=== PATIENT | female | born 1990 | race African-American/Black ===

== ENCOUNTER 2018-07-05 23:41 | Emergency (ER) | payer OTHER ==
[~2018-07-05] VITALS: Ht 162.6 cm; Wt 79.4 kg
[2018-07-06] MEDS ORDERED: Acetaminophen 500mg (ES) tab ORAL ONE (01:15)
[2018-07-06 02:03] LABS: APPEARANCE,URINE VERY CLOUDY; BILIRUBIN, URINE NEGATIVE (NEGATIVE); GLUCOSE, URINE (UA) NEGATIVE (NEGATIVE); KETONES,URINE 2+ (NEGATIVE); LEUKOCYTE ESTERASE ,URINE 3+ (NEGATIVE); NITRITE,URINE NEGATIVE (NEGATIVE); PH,URINE 6 (4.5-8.0); PROTEIN,URINE 3+ (NEGATIVE); UROBILINOGEN,URINE 1 MG/DL (0.0-1.0)
[2018-07-06 02:04] LABS: COLOR,URINE YELLOW
[2018-07-06] MEDS ORDERED: Cephalexin 500mg cap ORAL ONE (02:45)
[2018-07-06 02:57] VITALS: BP 115/69
--- NOTE | 2018-07-06 03:00 | NUR ---
ED Nurse Note: Patient resting, easily arousable. Patient tolerated medication well.
[2018-07-06] MEDS ORDERED: IBUPROFEN600 MG ORAL (04:45)
[2018-07-06] MEDS ORDERED: ROBAXIN-750750 MG PO (04:45)
[2018-07-06] MEDS ORDERED: CEPHALEXIN500 MG ORAL (04:45)
--- NOTE | 2018-07-06 04:56 | Emergency Room Report ---
History of Present Illness General Chief Complaint: Lower Back Pain or Injury Source: Patient Present Illness HPI Patient is a 27-year-old female who reports of increased facial pain as well as neck and back pain after a fall. Patient reports having a fall last night. She does not recall events after the fall. She reports of increased low back pain after falling. She denies any numbness or weakness. She reports having increased headache. Injury occurred approximately 12 hours prior to arrival. She was noted to have increased facial pain. Patient additionally reports having some mild neck discomfort. Allergies: Coded Allergies: No Known Allergies (Unverified , 07/06/18) Patient History Past Medical History: see triage record Last Menstrual Period: 07/03/18 Reviewed Nursing Documentation: PMH: Agreed; PSxH: Agreed Nursing Documentation-PMH Past Medical History: No Stated History Review of Systems All Other Systems: negative except mentioned in HPI Physical Exam Vital Signs Date Time Temp Pulse Resp B/P (MAP) Pulse Ox O2 Delivery O2 Flow Rate FiO2 07/05/18 23:57 98.1 61 18 100 Room Air 07/06/18 02:57 115/69 Sp02 EP Interpretation: reviewed, normal General Appearance: normal inspection, alert, no apparent distress, GCS 15 Head: normocephalic, other - Forehead swelling Eyes: normal eye exam, PERRL, EOMI, lids + conjunctiva normal, no hyphema, no racoon eyes ENT: TMs + canals normal, oropharynx normal, no dudley signs, other - nasal abrasion Neck: trach midline, no bony tend Respiratory: effort normal, no retractions, clear to auscultation, speaking in full sentences Cardiovascular: regular rate, rhythm, no JVD Cardiovascular #2: 2+ radial (R), 2+ radial (L), 2+ dorsalis pedis (R), 2+ dorsalis pedis (L) Gastrointestinal: normal inspection, non-tender, non-distended, normal bowel sounds Genitourinary: normal inspection Musculoskeletal: non-tender, other - Tenderness to low back. Skin: no lacerations, normal palpation, other - Facial abrasions to the forehead ,area near the left nares Lymphatic: normal inspection Neurologic: normal inspection, CN II-XII intact, oriented x3, sensory intact, motor strength/tone normal, normal speech Psychiatric: normal inspection, memory normal, mood normal, no suicidal/ homicidal ideation Medical Decision Making Diagnostic Impression: Primary Impression: Facial contusion Additional Impressions: Lumbar disc disease Cervical strain, acute Urinary tract infection ER Course Patient presented after reported fall. Differential diagnosis include was not limited to fracture, spinal cord injury, intracranial hemorrhage among others. Because of complexity of patient's case laboratory testing and imaging studies were ordered. Patient was noted to be not . CT imaging of the head by radiology showed no evidence of acute intracranial pathology. Patient was noted to have some significant abrasions to her face. Her left nare appeared to have some superficial trauma without any active bleeding. CT lumbar spine read by radiology showed lumbar disc bulges. CT of cervical spine showed normal bony alignment without evident fracture patient urinalysis showed some evidence of urinary infection and so patient will be given prescription for Keflex. Patient was noted to be ambulatory without assistance. Patient was to follow-up for recheck with her primary care physician. She is given prescriptions for medications for pain. Patient was advised to return if she had any concerns or worsening condition. Labs Test 07/06/18 01:24 Urine Color Yellow Urine Appearance Very cloudy Urine pH 6 (4.5-8.0) Urine Specific [place] 1.015 (1.005-1.035) Urine Protein 3+ (NEGATIVE) Urine Glucose (UA) Negative (NEGATIVE) Urine Ketones 2+ (NEGATIVE) Urine Blood 5+ (NEGATIVE) Urine Nitrite Negative (NEGATIVE) Urine Bilirubin Negative (NEGATIVE) Urine Urobilinogen 1 MG/DL (0.0-1.0) Urine Leukocyte Esterase 3+ (NEGATIVE) Urine RBC 20-30 /HPF (0 - 2) Urine WBC 20-30 /HPF (0 - 2) Urine Squamous Epithelial Cells Many /LPF (NONE/OCC) Urine Bacteria Many /HPF (NONE) Urine Mucus Few /LPF (NONE/OCC) Urine HCG, Qualitative Negative (NEGATIVE) Last Vital Signs Date Time Temp Pulse Resp B/P (MAP) Pulse Ox O2 Delivery O2 Flow Rate FiO2 07/06/18 02:57 98.1 83 18 115/69 100 Room Air Status: improved Disposition: HOME, SELF-CARE Condition: Stable Scripts Methocarbamol* (ROBAXIN-750*) 750 Mg Tablet 750 MG PO TID, #21 TAB 0 Refills Prov: Darvin Bales MD 07/06/18 Ibuprofen* (MOTRIN*) 600 Mg Tablet 600 MG ORAL Q8H PRN for For Pain, #30 TAB 0 Refills Prov: Darvin Bales MD 07/06/18 Cephalexin* (KEFLEX*) 500 Mg Capsule 500 MG ORAL EVERY 6 HOURS, #28 CAP Prov: Darvin Bales MD 07/06/18 Patient Instructions: Head Injury, Adult, Facial or Scalp Contusion, Back Pain , Adult Darvin Bales MD July 06, 2018 04:55
[2018-07-06] MEDS ORDERED: Bacitracin Oint UD TOPIC ONE (05:00)
[2018-07-06] MEDS ORDERED: Lidocaine HCl 2% Jelly 6ml Tube TOPIC ONE (05:00)
[2018-07-06 05:09] VITALS: BP 115/69
--- NOTE | 2018-07-06 05:09 | NUR ---
ER DISCHARGE NOTE: Patient is cleared to be discharged per Dr. Bales. Pt is aox4 on room air with stable vital signs. Pt was given dc and prescription instructions, pt was able to verbalize understanding, pt id band removed. pt is able to ambulate with steady gait. pt took all belongings.
--- NOTE | 2018-07-06 10:29 | Diagnostic Imaging Report ---
Indication: Neck pain. Technique: Continuous helical imaging of the cervical spine was obtained transaxially from the skull base to the upper thoracic spine. 2-D coronal and sagittal reformatted images were obtained. Automatic Exposure Control was utilized. Total Dose length Product (DLP): 437.[address] Dose Index Volume (CTDIvol): 21.65 mGy Comparison: None Findings: There is no evidence of an acute fracture or malalignment. Atlantoaxial alignment appears normal. Height and configuration of the vertebral bodies and intervertebral discs are within normal limits. Uncovertebral joints and facets are unremarkable. There is no soft tissue swelling. Impression: Negative cervical spine CT The CT scanner at [facility] is accredited by the [employer] and the scans are performed using dose optimization techniques as appropriate to a performed exam including Automatic Exposure control.
--- NOTE | 2018-07-06 10:31 | Diagnostic Imaging Report ---
Indication: Headache Technique: Contiguous 5 mm thick transaxial imaging of the head obtained in a Siemens Sensation [address] scanner. Soft tissue and bone windows generated. Automatic Exposure Control was utilized. Total Dose length Product (DLP): 1432.[address] Dose Index Volume (CTDIvol): 70.38 mGy Comparison: none Findings: The size and configuration of the cortical sulci, basal cisterns, and ventricles are within normal limits for age. There is no mass effect, midline shift, or edema identified. There is no evidence of acute hemorrhage or abnormal intra-axial or extra-axial fluid collections. The bones and soft tissues are unremarkable. Impression: No mass effect, edema or acute bleed. [facility] has communicated the preliminary results to the Emergency Department. Their findings are largely concordant with this report. The CT scanner at [facility] is accredited by the [employer] and the scans are performed using dose optimization techniques as appropriate to a performed exam including Automatic Exposure control.
--- NOTE | 2018-07-06 10:53 | Diagnostic Imaging Report ---
Indication: Back pain Technique: Continuous helical transaxial imaging of the lumbar spine was obtained from the lung bases to the pubic symphysis. No IV contrast was administered. Coronal 2-D reformats were also obtained. Study obtained in a Siemens sensation [address] Total Dose length Product (DLP): 941.[address] Dose Index Volume (CTDIvol): 29.92 mGy Comparison: None Findings: There is no evidence of an acute fracture or malalignment. Height and configuration of the vertebral bodies and intervertebral discs are within normal limits. The facets are unremarkable. There is no soft tissue swelling. Impression: Negative lumbar spine CT The CT scanner at [facility] is accredited by the [employer] and the scans are performed using dose optimization techniques as appropriate to a performed exam including Automatic Exposure control.
== END 2018-07-06 05:09 | disposition home or self-care (01) ==
LOC: EMR 07-06 00:42
DX: S00.83XA Contusion of other part of head, initial encounter (principal); M50.30 Other cervical disc degeneration, unspecified cervical region; S16.1XXA Strain of muscle, fascia and tendon at neck level, initial encounter; N39.0 Urinary tract infection, site not specified; W19.XXXA Unspecified fall, initial encounter; Y92.9 Unspecified place or not applicable; R51 Headache; M54.9 Dorsalgia, unspecified; M54.2 Cervicalgia; S00.31XA Abrasion of nose, initial encounter
CPT/HCPCS: 70450; 72125; 72131; 81003; 81025; 87086; 99284